=== PATIENT | male | born 1995 | race African-American/Black ===

== ENCOUNTER 2018-02-15 09:58 | Emergency (ER) | payer SELFPAY ==
[~2018-02-15] VITALS: Ht 175.3 cm; Wt 100.0 kg
[2018-02-15 09:58] VITALS: TEMP 100.3
[2018-02-15] MEDS ORDERED: NORCO 325 MG-51 TAB PO (12:12)
[2018-02-15 12:28] VITALS: BP 118/75; PULSE 79
== END 2018-02-15 12:28 | disposition home or self-care (01) ==
LOC: COL.ER 09:58
DX: S43.004A Unspecified dislocation of right shoulder joint, initial encounter (principal); F17.210 Nicotine dependence, cigarettes, uncomplicated; X58.XXXA Exposure to other specified factors, initial encounter; Y92.009 Unspecified place in unspecified non-institutional (private) residence as the place of occurrence of the external cause
CPT/HCPCS: J2405; J2704; J3010; J7030

== ENCOUNTER 2019-06-29 14:00 | Emergency (ER) | payer MEDICAID ==
[~2019-06-29] VITALS: Ht 175.3 cm; Wt 90.9 kg
[~2019-06-29 14:00] MED LIST: NORCO 325 MG-51 TAB PO
[2019-06-29 14:08] VITALS: TEMP 98.4
[2019-06-29 16:36] VITALS: BP 114/73; PULSE 73
== END 2019-06-29 16:37 | disposition home or self-care (01) ==
LOC: COL.ER 14:00
DX: S50.12XA Contusion of left forearm, initial encounter (principal); F17.210 Nicotine dependence, cigarettes, uncomplicated; W22.8XXA Striking against or struck by other objects, initial encounter

== ENCOUNTER 2019-12-15 19:47 | Emergency (ER) | payer MEDICAID ==
[~2019-12-15] VITALS: Ht 175.3 cm; Wt 86.4 kg
[2019-12-15 19:48] VITALS: TEMP 98.4
[2019-12-15 21:25] VITALS: BP 130/76; PULSE 73
== END 2019-12-15 21:30 | disposition home or self-care (01) ==
LOC: COL.ER 19:47
DX: M24.411 Recurrent dislocation, right shoulder (principal); X50.1XXA Overexertion from prolonged static or awkward postures, initial encounter; Y92.009 Unspecified place in unspecified non-institutional (private) residence as the place of occurrence of the external cause
CPT/HCPCS: J2405; J2704; J3010; J7030